=== PATIENT | male | born 1935 | race African-American/Black ===

== ENCOUNTER 2017-08-15 15:29 | Emergency (ER) | payer MEDICARE, MEDICAID, OTHER ==
[~2017-08-15] VITALS: Ht 167.6 cm; Wt 55.0 kg
[~2017-08-15 15:29] MED LIST: AMLO10TA80 PO; ASPI-1159 PO; CARV25TA47 PO; CINACALCET 30 MG PO; LOSA25TA12 PO; RENA-VITE PO; RENVELA PO; SIMVASTATIN 20MG PO
[2017-08-15 16:53] LABS: HEMATOCRIT. 35.1 % (42.0-52.0); HEMOGLOBIN. 11.4 g/dL (14.0-18.0); MEAN CORPUSCULAR HEMOGLOBIN 30.6 pg (28.0-32.0); MEAN PLATELET VOLUME 9.1 fl (7.4-10.4); PLATELET 210 x1000/uL (130-400); RED BLOOD CELL COUNT 3.74 mill/uL (4.7-6.1); RED CELL DISTRIBUTION WIDTH 15.7 % (11.6-14.6)
[2017-08-15 16:56] LABS: CHLORIDE 96 mEq/L (98-107); INR 1.2; PROTHROMBIN TIME 12.6 sec (9.4-11.6)
[2017-08-15 17:21] LABS: ATYPICAL LYMPHOCYTES 1; PLATELET ESTIMATE NORMAL
[2017-08-15 23:32] VITALS: BP 150/90
[2017-08-15 23:32] LABS: PHOSPHORUS 4.3 mg/dL (2.5-4.9)
== END 2017-08-16 00:53 | disposition home or self-care (01) ==
LOC: ER 16:05 → CANBEDREQ 08-16 01:28
DX: K40.90 Unilateral inguinal hernia, without obstruction or gangrene, not specified as recurrent (principal); I12.0 Hypertensive chronic kidney disease with stage 5 chronic kidney disease or end stage renal disease; N18.6 End stage renal disease; E87.8 Other disorders of electrolyte and fluid balance, not elsewhere classified; Z88.0 Allergy status to penicillin; Z99.2 Dependence on renal dialysis; Z79.82 Long term (current) use of aspirin
CPT/HCPCS: 36415; 71045; 74176; 80053; 83605; 83735; 84100; 84484; 85025; 85610; 85730; 87040; 93005; 99285

== ENCOUNTER 2017-08-21 09:44 | Inpatient (IN) | payer MEDICARE, OTHER ==
[~2017-08-21] VITALS: Ht 157.5 cm; Wt 56.0 kg
[2017-08-21] MEDS ORDERED: NITROGLYCERIN OINT 1GM/INCH UDPKT TD STA (10:03)
[2017-08-21 10:49] LABS: BASOPHILS % 0.9 % (0.0-2.0); EOSINOPHILS % 6.1 % (0.0-5.0); HEMATOCRIT. 34.2 % (42.0-52.0); HEMOGLOBIN. 11.4 g/dL (14.0-18.0); LYMPHOCYTES % 11.3 % (20.0-50.0); MEAN CORPUSCULAR HEMOGLOBIN 30.8 pg (28.0-32.0); MEAN CORPUSCULAR VOLUME 92.6 fL (80.0-94.0); MEAN PLATELET VOLUME 11.1 fl (7.4-10.4); MONOCYTES % 10.6 % (2.0-8.0); NEUTROPHILS % 71.1 % (40.0-76.0); PLATELET 252 x1000/uL (130-400); RED CELL DISTRIBUTION WIDTH 16.2 % (11.6-14.6)
[2017-08-21 10:58] LABS: CHLORIDE 92 mEq/L (98-107)
[2017-08-21 11:04] LABS: INR 1.3; PARTIAL THROMBOPLASTIN TIME 29.4 sec (23.4-31.0); PROTHROMBIN TIME 13.3 sec (9.4-11.6)
[2017-08-21 14:00] VITALS: BP 120/80
[2017-08-21] MEDS ORDERED: BISO5TAB13 MT (16:47)
[2017-08-21] MEDS ORDERED: AMBR5TAB3 MT (16:47)
[2017-08-21] MEDS: ENOXAPARIN 30MG/0.3ML SYR SUBCUT SCH (17:22)
[2017-08-21] MEDS: SEVELAMER CARBONATE 800 MG TABLET PO SCH (17:22)
[2017-08-21] MEDS: ASPIRIN 81MG EC TABLET PO SCH (17:22)
[2017-08-21 19:50] VITALS: BP 104/67
[2017-08-21] MEDS: CARVEDILOL 3.125 MG TABLET PO SCH (21:00)
[2017-08-21] MEDS: IPRATROPIUM/ALBUTEROL 0.5-3(2.5)MG/3ML NEB HHN SCH (22:07)
[2017-08-21] MEDS: BUDESONIDE 0.5MG/2ML NEB HHN SCH (22:08)
[2017-08-22] VITALS: BP 101/56
[2017-08-22] MEDS: IPRATROPIUM/ALBUTEROL 0.5-3(2.5)MG/3ML NEB HHN SCH ×4 (01:41→20:38)
[2017-08-22 04:00] VITALS: BP 105/61
[2017-08-22 06:53] LABS: HEMOGLOBIN. 11.1 g/dL (14.0-18.0); MEAN CORPUSCULAR HEMOGLOBIN 30.4 pg (28.0-32.0); MEAN CORPUSCULAR VOLUME 93.4 fL (80.0-94.0); PLATELET 199 x1000/uL (130-400); RED BLOOD CELL COUNT 3.64 mill/uL (4.7-6.1); RED CELL DISTRIBUTION WIDTH 16.3 % (11.6-14.6)
[2017-08-22] MEDS: SEVELAMER CARBONATE 800 MG TABLET PO SCH ×3 (07:50→17:26)
[2017-08-22 08:00] VITALS: BP 105/70
[2017-08-22] MEDS: BUDESONIDE 0.5MG/2ML NEB HHN SCH ×2 (08:30→20:38)
[2017-08-22] MEDS: LOSARTAN POTASSIUM 25 MG TABLET PO SCH (09:00)
[2017-08-22] MEDS: CARVEDILOL 3.125 MG TABLET PO SCH ×2 (09:00→21:40)
[2017-08-22] MEDS ORDERED: FLUTICASONE/VILANTEROL 200-25 BLST.W.DEV ORI SCH (09:00)
[2017-08-22] MEDS ORDERED: UMECLIDINIUM BROMIDE 1 INH BLST.W.DEV IH SCH (09:00)
[2017-08-22 09:24] LABS: CHLORIDE 96 mEq/L (98-107)
[2017-08-22 09:37] LABS: CREATINE KINASE 129 IU/L (39-308)
[2017-08-22 09:39] LABS: CREATINE KINASE MB FRACTION 1.1 ng/mL (0.5-3.6)
[2017-08-22] MEDS ORDERED: NON FORMULARY PATIENT HOME MED EA PO SCH (09:45)
[2017-08-22] MEDS: CINACALCET HCL 30MG TABLET PO SCH (09:59)
[2017-08-22] MEDS: FOLIC ACID/VITAMIN B COMP W-C TABLET PO SCH (10:01)
[2017-08-22] MEDS: ASPIRIN 81MG EC TABLET PO SCH (10:08)
[2017-08-22 12:00] VITALS: BP 96/54
[2017-08-22] MEDS: LETAIRIS 5 MG PO SCH (14:16)
[2017-08-22 14:22] LABS: PLATELET ESTIMATE NORMAL
[2017-08-22 16:00] VITALS: BP 107/65
[2017-08-22] MEDS ORDERED: SODIUM POLYSTYRENE SULFONATE 15 G/60 ML BOT PO NR (16:00)
[2017-08-22] MEDS: ENOXAPARIN 30MG/0.3ML SYR SUBCUT SCH (17:26)
[2017-08-22 20:45] VITALS: BP 117/65
[2017-08-23 00:27] VITALS: BP 146/62
[2017-08-23] MEDS: IPRATROPIUM/ALBUTEROL 0.5-3(2.5)MG/3ML NEB HHN SCH ×5 (01:17→21:14)
[2017-08-23 04:00] VITALS: BP 140/60
[2017-08-23 06:13] LABS: BASOPHILS % 0.9 % (0.0-2.0); EOSINOPHILS % 9.1 % (0.0-5.0); HEMATOCRIT. 33.8 % (42.0-52.0); HEMOGLOBIN. 11.3 g/dL (14.0-18.0); MEAN CORPUSCULAR HEMOGLOBIN 31.1 pg (28.0-32.0); MEAN CORPUSCULAR VOLUME 93.1 fL (80.0-94.0); MEAN PLATELET VOLUME 9.7 fl (7.4-10.4); MONOCYTES % 14.2 % (2.0-8.0); NEUTROPHILS % 63.8 % (40.0-76.0); PLATELET 203 x1000/uL (130-400); RED BLOOD CELL COUNT 3.64 mill/uL (4.7-6.1)
[2017-08-23 06:30] LABS: CHLORIDE 91 mEq/L (98-107)
[2017-08-23 06:49] LABS: PHOSPHORUS 4.2 mg/dL (2.5-4.9)
[2017-08-23 08:00] VITALS: BP 137/77
[2017-08-23] MEDS: BUDESONIDE 0.5MG/2ML NEB HHN SCH ×2 (08:01→21:14)
[2017-08-23] MEDS: CARVEDILOL 3.125 MG TABLET PO SCH ×2 (09:00→21:03)
[2017-08-23] MEDS: LOSARTAN POTASSIUM 25 MG TABLET PO SCH (09:05)
[2017-08-23] MEDS: SEVELAMER CARBONATE 800 MG TABLET PO SCH ×3 (09:12→17:09)
[2017-08-23] MEDS: LETAIRIS 5 MG PO SCH (09:13)
[2017-08-23 12:00] VITALS: BP 100/54
[2017-08-23 15:30] VITALS: BP 125/73
[2017-08-23] MEDS: ASPIRIN 81MG EC TABLET PO SCH (17:08)
[2017-08-23] MEDS: FOLIC ACID/VITAMIN B COMP W-C TABLET PO SCH (17:08)
[2017-08-23] MEDS: CINACALCET HCL 30MG TABLET PO SCH (17:09)
[2017-08-23] MEDS: ENOXAPARIN 30MG/0.3ML SYR SUBCUT SCH (17:09)
[2017-08-23 20:49] VITALS: BP 120/56
[2017-08-23] MEDS: ACETAMINOPHEN 325MG TABLET PO PRN (21:03)
[2017-08-24] VITALS: BP 122/58
[2017-08-24] MEDS: IPRATROPIUM/ALBUTEROL 0.5-3(2.5)MG/3ML NEB HHN SCH ×2 (01:11→09:00)
[2017-08-24 04:00] VITALS: BP 124/58
[2017-08-24 07:59] VITALS: BP 136/78
[2017-08-24] MEDS: LOSARTAN POTASSIUM 25 MG TABLET PO SCH (08:13)
[2017-08-24] MEDS: CINACALCET HCL 30MG TABLET PO SCH (08:13)
[2017-08-24] MEDS: CARVEDILOL 3.125 MG TABLET PO SCH ×2 (08:13→21:38)
[2017-08-24] MEDS: FOLIC ACID/VITAMIN B COMP W-C TABLET PO SCH (08:13)
[2017-08-24] MEDS: ASPIRIN 81MG EC TABLET PO SCH (08:13)
[2017-08-24] MEDS: SEVELAMER CARBONATE 800 MG TABLET PO SCH (08:13)
[2017-08-24] MEDS: ACETAMINOPHEN 325MG TABLET PO PRN (08:21)
[2017-08-24] MEDS: BUDESONIDE 0.5MG/2ML NEB HHN SCH (09:20)
[2017-08-24] MEDS: LETAIRIS 5 MG PO SCH (09:52)
[2017-08-24] MEDS ORDERED: CINACALCET HCL 30MG TABLET PO SCH (10:00)
[2017-08-24] MEDS ORDERED: UMECLIDINIUM BROMIDE 1 INH BLST.W.DEV IH SCH (10:15)
[2017-08-24] MEDS ORDERED: FLUTICASONE/VILANTEROL 200-25 BLST.W.DEV ORI SCH (10:15)
[2017-08-24] MEDS: UMECLIDINIUM BROMIDE 1 INH BLST.W.DEV IH SCH (11:03)
[2017-08-24] MEDS: FLUTICASONE/VILANTEROL 200-25 BLST.W.DEV ORI SCH (11:04)
[2017-08-24 12:13] VITALS: BP 90/52
[2017-08-24 13:18] LABS: HEMOGLOBIN. 10.5 g/dL (14.0-18.0); MEAN CORPUSCULAR HEMOGLOBIN 30.6 pg (28.0-32.0); MEAN CORPUSCULAR VOLUME 93.6 fL (80.0-94.0); MEAN PLATELET VOLUME 9.9 fl (7.4-10.4); PLATELET 207 x1000/uL (130-400); RED BLOOD CELL COUNT 3.42 mill/uL (4.7-6.1); RED CELL DISTRIBUTION WIDTH 16.7 % (11.6-14.6)
[2017-08-24 13:53] LABS: PHOSPHORUS 3.9 mg/dL (2.5-4.9)
[2017-08-24] MEDS: CALCIUM ACETATE 667MG CAPSULE PO SCH ×2 (14:15→17:14)
[2017-08-24 15:33] VITALS: BP 100/59
[2017-08-24] MEDS: ENOXAPARIN 30MG/0.3ML SYR SUBCUT SCH (17:00)
[2017-08-24 17:48] LABS: AMMONIA 12 uMol/L (<32)
[2017-08-24 20:00] VITALS: BP 126/68
[2017-08-25] VITALS: BP 130/60
[2017-08-25 04:00] VITALS: BP 117/76
[2017-08-25 06:34] LABS: HEMATOCRIT. 31.3 % (42.0-52.0); HEMOGLOBIN. 10.3 g/dL (14.0-18.0); MEAN CORPUSCULAR HEMOGLOBIN 30.6 pg (28.0-32.0); MEAN CORPUSCULAR VOLUME 92.9 fL (80.0-94.0); MEAN PLATELET VOLUME 9.4 fl (7.4-10.4); PLATELET 200 x1000/uL (130-400); RED BLOOD CELL COUNT 3.37 mill/uL (4.7-6.1); RED CELL DISTRIBUTION WIDTH 16.7 % (11.6-14.6)
[2017-08-25 08:00] VITALS: BP 129/72
[2017-08-25] MEDS: CINACALCET HCL 60MG TABLET PO SCH (09:00)
[2017-08-25] MEDS: CALCIUM ACETATE 667MG CAPSULE PO SCH ×3 (09:05→17:20)
[2017-08-25] MEDS: CARVEDILOL 3.125 MG TABLET PO SCH ×2 (09:05→21:09)
[2017-08-25] MEDS: FOLIC ACID/VITAMIN B COMP W-C TABLET PO SCH (09:05)
[2017-08-25] MEDS: FLUTICASONE/VILANTEROL 200-25 BLST.W.DEV ORI SCH (09:06)
[2017-08-25] MEDS: LETAIRIS 5 MG PO SCH (09:07)
[2017-08-25] MEDS: UMECLIDINIUM BROMIDE 1 INH BLST.W.DEV IH SCH (09:27)
[2017-08-25 10:50] LABS: PLATELET ESTIMATE NORMAL
[2017-08-25 12:00] VITALS: BP 103/60
[2017-08-25 13:43] LABS: PLATELET ESTIMATE NORMAL
[2017-08-25 16:00] VITALS: BP 127/76
[2017-08-25] MEDS: LOSARTAN POTASSIUM 25 MG TABLET PO SCH (17:19)
[2017-08-25] MEDS: ASPIRIN 81MG EC TABLET PO SCH (17:19)
[2017-08-25] MEDS: ENOXAPARIN 30MG/0.3ML SYR SUBCUT SCH (17:20)
[2017-08-25 20:00] VITALS: BP 137/82
[2017-08-26] VITALS: BP 120/72
[2017-08-26 04:00] VITALS: BP 125/80
[2017-08-26 08:00] VITALS: BP 132/71
[2017-08-26] MEDS: CINACALCET HCL 60MG TABLET PO SCH (09:28)
[2017-08-26] MEDS: FOLIC ACID/VITAMIN B COMP W-C TABLET PO SCH (09:29)
[2017-08-26] MEDS: CALCIUM ACETATE 667MG CAPSULE PO SCH ×3 (09:29→17:16)
[2017-08-26] MEDS: ASPIRIN 81MG EC TABLET PO SCH (09:30)
[2017-08-26] MEDS: LOSARTAN POTASSIUM 25 MG TABLET PO SCH (09:30)
[2017-08-26] MEDS: LETAIRIS 5 MG PO SCH (09:31)
[2017-08-26] MEDS: CARVEDILOL 3.125 MG TABLET PO SCH ×2 (09:33→21:22)
[2017-08-26] MEDS: FLUTICASONE/VILANTEROL 200-25 BLST.W.DEV ORI SCH (09:40)
[2017-08-26] MEDS: UMECLIDINIUM BROMIDE 1 INH BLST.W.DEV IH SCH (09:41)
[2017-08-26 12:10] VITALS: BP 125/74
[2017-08-26] MEDS: ALBUTEROL (0.083%) 2.5MG/3ML NEB HHN PRN ×2 (12:21→16:02)
[2017-08-26] MEDS: ENOXAPARIN 30MG/0.3ML SYR SUBCUT SCH (17:18)
[2017-08-26 18:00] VITALS: BP 120/76
[2017-08-26 20:17] VITALS: BP 112/65
[2017-08-27] VITALS: BP 110/60
[2017-08-27 04:11] VITALS: BP 135/66
[2017-08-27 06:52] LABS: HEMATOCRIT. 29.7 % (42.0-52.0); HEMOGLOBIN. 9.9 g/dL (14.0-18.0); MEAN CORPUSCULAR HEMOGLOBIN 30.6 pg (28.0-32.0); MEAN CORPUSCULAR VOLUME 92.1 fL (80.0-94.0); MEAN PLATELET VOLUME 9.6 fl (7.4-10.4); PLATELET 203 x1000/uL (130-400); RED BLOOD CELL COUNT 3.22 mill/uL (4.7-6.1); RED CELL DISTRIBUTION WIDTH 16.3 % (11.6-14.6)
[2017-08-27 07:12] LABS: PHOSPHORUS 3.4 mg/dL (2.5-4.9)
[2017-08-27 08:06] VITALS: BP 122/75
[2017-08-27] MEDS: FOLIC ACID/VITAMIN B COMP W-C TABLET PO SCH (09:40)
[2017-08-27] MEDS: CINACALCET HCL 60MG TABLET PO SCH (09:41)
[2017-08-27] MEDS: ASPIRIN 81MG EC TABLET PO SCH (09:41)
[2017-08-27] MEDS: CARVEDILOL 3.125 MG TABLET PO SCH (09:42)
[2017-08-27] MEDS: CALCIUM ACETATE 667MG CAPSULE PO SCH (09:43)
[2017-08-27] MEDS: LOSARTAN POTASSIUM 25 MG TABLET PO SCH (09:43)
[2017-08-27] MEDS: LETAIRIS 5 MG PO SCH (09:44)
[2017-08-27] MEDS: FLUTICASONE/VILANTEROL 200-25 BLST.W.DEV ORI SCH (09:45)
[2017-08-27] MEDS: UMECLIDINIUM BROMIDE 1 INH BLST.W.DEV IH SCH (09:45)
[2017-08-27] MEDS ORDERED: SODIUM POLYSTYRENE SULFONATE 15 G/60 ML BOT PO SCH (10:45)
[2017-08-27 11:23] LABS: PLATELET ESTIMATE NORMAL
[2017-08-27 11:42] VITALS: BP 151/91
[2017-08-27 11:45] LABS: BG BASE EXCESS -0.2 mmol/L (-2.0-2.0); BG CARBOXYHEMOGLOBIN 0.9 % (0.5-1.5); BG FRACTION INSPIRED OXYGEN 21; BG HCO3 ACT 21.8 mmol/L (22.0-26.0); BG METHEMOGLOBIN 0.3 % (0.0-1.5); BG OXYGEN SATURATION 92.9 % (92.0-98.5); BG OXYHEMOGLOBIN 91.8 % (94.0-97.0); BG PCO2 27.9 mmHg (35.0-45.0); BG PH 7.511 (7.350-7.450); BG PO2 65.7 mmHg (75.0-100.0); BG SAMPLE SITE RIGHT RADIAL; BG TOTAL HEMOGLOBIN 11.6 g/dL (12.0-18.0); BG VENT MODE ROOM AIR
[2017-08-27 13:00] VITALS: BP 134/75
== END 2017-08-27 15:11 | disposition home or self-care (01) | DRG 291 ==
LOC: ER 10:47 → 6WST 11:15 → EDBEDREQTM 11:16 → EDBEDREQ 11:16 → ENRESERV 13:19 → SUPCPDRO 14:39
PROVIDERS: ADMIT Internal Medicine Critical Care Medicine; ATTEND Internal Medicine Critical Care Medicine
PROC: 5A1D70Z Performance of Urinary Filtration, Intermittent, Less than 6 Hours Per Day (ICD-10-PCS; principal; 2017-08-21)
PROC: 5A1D70Z Performance of Urinary Filtration, Intermittent, Less than 6 Hours Per Day (ICD-10-PCS; 2017-08-23)
PROC: 5A1D70Z Performance of Urinary Filtration, Intermittent, Less than 6 Hours Per Day (ICD-10-PCS; 2017-08-25)
DX: I13.2 Hypertensive heart and chronic kidney disease with heart failure and with stage 5 chronic kidney disease, or end stage renal disease (principal); N18.6 End stage renal disease; J96.91 Respiratory failure, unspecified with hypoxia; I50.33 Acute on chronic diastolic (congestive) heart failure; N25.81 Secondary hyperparathyroidism of renal origin; N17.9 Acute kidney failure, unspecified; Z99.2 Dependence on renal dialysis; I27.21 Secondary pulmonary arterial hypertension; J44.9 Chronic obstructive pulmonary disease, unspecified; I34.0 Nonrheumatic mitral (valve) insufficiency; D64.9 Anemia, unspecified; E11.22 Type 2 diabetes mellitus with diabetic chronic kidney disease; E78.00 Pure hypercholesterolemia, unspecified; E78.5 Hyperlipidemia, unspecified; E87.5 Hyperkalemia; F41.9 Anxiety disorder, unspecified; Z96.1 Presence of intraocular lens; I42.9 Cardiomyopathy, unspecified; I27.20 Pulmonary hypertension, unspecified; I25.10 Atherosclerotic heart disease of native coronary artery without angina pectoris; Z82.5 Family history of asthma and other chronic lower respiratory diseases; Z87.891 Personal history of nicotine dependence; Z88.0 Allergy status to penicillin; Z98.41 Cataract extraction status, right eye; Z98.42 Cataract extraction status, left eye; Z99.81 Dependence on supplemental oxygen; Z79.4 Long term (current) use of insulin
CPT/HCPCS: 36415; 36600; 70450; 71045; 80048; 80053; 82140; 82375; 82550; 82553; 82805; 82962; 83605; 83735; 83880; 84100; 84443; 84484; 85025; 85379; 85610; 85730; 87040; 93005; 99291; J1650; J7030; J7611; J7620; J7626

== ENCOUNTER 2018-01-03 07:09 | Inpatient (IN) | payer MEDICARE, OTHER ==
[~2018-01-03] VITALS: Ht 167.6 cm; Wt 57.6 kg
[~2018-01-03 07:09] MED LIST changes: +AMBR5TAB3 MT; -AMLO10TA80 PO; -RENVELA PO
[2018-01-03 08:33] LABS: HEMATOCRIT. 39.1 % (42.0-52.0); MEAN CORPUSCULAR HEMOGLOBIN 32.1 pg (28.0-32.0); MEAN CORPUSCULAR VOLUME 96.3 fL (80.0-94.0); MEAN PLATELET VOLUME 10.1 fl (7.4-10.4); PLATELET 120 x1000/uL (130-400); RED BLOOD CELL COUNT 4.06 mill/uL (4.7-6.1); RED CELL DISTRIBUTION WIDTH 16.7 % (11.6-14.6)
[2018-01-03 08:37] LABS: CHLORIDE 94 mEq/L (98-107)
[2018-01-03 08:56] LABS: PLATELET ESTIMATE SLIGHTLY DECREASED
[2018-01-03 09:51] LABS: INR 1.1
[2018-01-03] MEDS ORDERED: CLONIDINE 0.1MG TABLET PO PRN (10:00)
[2018-01-03 10:26] LABS: TOTAL IRON BINDING CAPACITY 217 ug/dL (250-450)
[2018-01-03 10:52] LABS: VITAMIN B12 SERUM 852 pg/mL (211-911)
[2018-01-03 15:48] VITALS: BP 145/85
[2018-01-03 16:00] VITALS: BP 145/85
[2018-01-03] MEDS: CINACALCET HCL 60MG TABLET PO SCH (16:00)
[2018-01-03] MEDS ORDERED: SORBITOL 70% SOLN 30ML PO NR ×2 (16:00→20:00)
[2018-01-03] MEDS ORDERED: ALBUTEROL (0.083%) 2.5MG/3ML NEB HHN PRN (17:30)
[2018-01-03 17:47] LABS: BG BASE EXCESS 2.6 mmol/L (-2.0-2.0); BG CARBOXYHEMOGLOBIN 0.9 % (0.5-1.5); BG DEOXYHEMOGLOBIN 7.7 % (0.0-5.0); BG HCO3 ACT 25.3 mmol/L (22.0-26.0); BG METHEMOGLOBIN 0.3 % (0.0-1.5); BG OXYGEN SATURATION 92.2 % (92.0-98.5); BG OXYHEMOGLOBIN 91.1 % (94.0-97.0); BG PCO2 33.1 mmHg (35.0-45.0); BG PH 7.502 (7.350-7.450); BG PO2 64.7 mmHg (75.0-100.0); BG SAMPLE SITE RIGHT RADIAL; BG TOTAL HEMOGLOBIN 12.7 g/dL (12.0-18.0); BG VENT MODE ROOM AIR
[2018-01-03 20:00] VITALS: BP 106/83
[2018-01-03] MEDS: UMECLIDINIUM BROMIDE 1 INH BLST.W.DEV IH SCH (20:00)
[2018-01-03] MEDS: FLUTICASONE/VILANTEROL 200-25 BLST.W.DEV ORI SCH (20:00)
[2018-01-03] MEDS ORDERED: DEXT 5%/0.45% NACL 1000ML 1,000 ML IV SCH (23:30)
[2018-01-04] VITALS: BP 146/64
[2018-01-04] MEDS ORDERED: ONDANSETRON HCL 4MG/2ML INJ IV PRN (01:30)
[2018-01-04] MEDS ORDERED: DEXT 5%/0.45% NACL 1000ML 1,000 ML IV SCH (02:00)
[2018-01-04 04:00] VITALS: BP 130/83
[2018-01-04 07:40] LABS: D-DIMER 16.46 mg/L FEU (<0.50); INR 1.1; PARTIAL THROMBOPLASTIN TIME 24.6 sec (23.4-31.0); PROTHROMBIN TIME 11.4 sec (9.1-11.1)
[2018-01-04 07:55] LABS: BASOPHILS % 0.9 % (0.0-2.0); HEMATOCRIT. 45.9 % (42.0-52.0); HEMOGLOBIN. 14.7 g/dL (14.0-18.0); LYMPHOCYTES % 12.5 % (20.0-50.0); MEAN CORPUSCULAR HEMOGLOBIN 31.6 pg (28.0-32.0); MEAN CORPUSCULAR VOLUME 98.6 fL (80.0-94.0); MEAN PLATELET VOLUME 10.7 fl (7.4-10.4); MONOCYTES % 13.3 % (2.0-8.0); NEUTROPHILS % 72.3 % (40.0-76.0); PLATELET 126 x1000/uL (130-400); RED BLOOD CELL COUNT 4.65 mill/uL (4.7-6.1); RED CELL DISTRIBUTION WIDTH 17.7 % (11.6-14.6)
[2018-01-04] MEDS: CINACALCET HCL 60MG TABLET PO SCH (08:25)
[2018-01-04 08:30] VITALS: BP 117/72
[2018-01-04 12:00] VITALS: BP 142/83
[2018-01-04 12:27] LABS: T4 FREE 1.26 ng/dL (0.76-1.46)
[2018-01-04] MEDS ORDERED: SIMETHICONE 40 MG/0.6 ML 30ML ONE (16:16)
[2018-01-04] MEDS ORDERED: FENTANYL CITRATE/PF 50MCG/ML 2ML VIAL IV ONE (16:20)
[2018-01-04] MEDS ORDERED: MIDAZOLAM HCL 5 MG/5 ML VIAL IV ONE (16:20)
[2018-01-04] MEDS ORDERED: MIDAZOLAM HCL 5 MG/5 ML VIAL ONE (16:25)
[2018-01-04] MEDS ORDERED: FENTANYL CITRATE/PF 50MCG/ML 2ML VIAL ONE (16:29)
[2018-01-04 18:00] VITALS: BP 147/77
[2018-01-04 20:00] VITALS: BP 134/75
[2018-01-05] VITALS: BP 112/60
[2018-01-05 04:00] VITALS: BP 118/77
[2018-01-05 06:38] LABS: HEMATOCRIT. 37.6 % (42.0-52.0); HEMOGLOBIN. 12.6 g/dL (14.0-18.0); MEAN CORPUSCULAR HEMOGLOBIN 32.4 pg (28.0-32.0); MEAN CORPUSCULAR VOLUME 96.6 fL (80.0-94.0); MEAN PLATELET VOLUME 9.8 fl (7.4-10.4); PLATELET 101 x1000/uL (130-400); RED BLOOD CELL COUNT 3.89 mill/uL (4.7-6.1); RED CELL DISTRIBUTION WIDTH 17.2 % (11.6-14.6)
[2018-01-05 07:12] LABS: PHOSPHORUS 5.4 mg/dL (2.5-4.9)
[2018-01-05 07:16] LABS: T4 FREE 1.2 ng/dL (0.76-1.46)
[2018-01-05 08:23] VITALS: BP 139/82
[2018-01-05] MEDS: FLUTICASONE/VILANTEROL 200-25 BLST.W.DEV ORI SCH ×2 (08:49→08:56)
[2018-01-05] MEDS: CINACALCET HCL 60MG TABLET PO SCH (08:49)
[2018-01-05] MEDS: UMECLIDINIUM BROMIDE 1 INH BLST.W.DEV IH SCH ×2 (08:51→08:55)
[2018-01-05] MEDS ORDERED: LEVOTHYROXINE SODIUM 25MCG TABLET PO SCH (11:45)
[2018-01-05 11:52] LABS: PLATELET ESTIMATE DECREASED
[2018-01-05 12:00] VITALS: BP 107/64
[2018-01-05 16:16] VITALS: BP 107/64
== END 2018-01-05 18:00 | disposition home or self-care (01) | DRG 377 ==
LOC: ER 07:09 → 8WST 09:31 → EDBEDREQTM 09:34 → EDBEDREQ 09:34 → ENRESERV 14:24
PROVIDERS: ADMIT Internal Medicine; ATTEND Internal Medicine
PROC: 5A1D70Z Performance of Urinary Filtration, Intermittent, Less than 6 Hours Per Day (ICD-10-PCS; 2018-01-03)
PROC: 5A1D70Z Performance of Urinary Filtration, Intermittent, Less than 6 Hours Per Day (ICD-10-PCS; 2018-01-04)
PROC: 0DJD8ZZ Inspection of Lower Intestinal Tract, Via Natural or Artificial Opening Endoscopic (ICD-10-PCS; principal; 2018-01-04 14:00)
DX: K57.31 Diverticulosis of large intestine without perforation or abscess with bleeding (principal); N18.6 End stage renal disease; K85.90 Acute pancreatitis without necrosis or infection, unspecified; N25.81 Secondary hyperparathyroidism of renal origin; J96.11 Chronic respiratory failure with hypoxia; I31.3 Pericardial effusion (noninflammatory); I13.2 Hypertensive heart and chronic kidney disease with heart failure and with stage 5 chronic kidney disease, or end stage renal disease; I42.0 Dilated cardiomyopathy; E78.00 Pure hypercholesterolemia, unspecified; Z96.1 Presence of intraocular lens; D50.9 Iron deficiency anemia, unspecified; F17.210 Nicotine dependence, cigarettes, uncomplicated; K64.8 Other hemorrhoids; I50.9 Heart failure, unspecified; E78.5 Hyperlipidemia, unspecified; I25.10 Atherosclerotic heart disease of native coronary artery without angina pectoris; J44.9 Chronic obstructive pulmonary disease, unspecified; I27.20 Pulmonary hypertension, unspecified; Z88.0 Allergy status to penicillin; Z79.82 Long term (current) use of aspirin; Z79.899 Other long term (current) drug therapy; Z99.81 Dependence on supplemental oxygen; Z95.5 Presence of coronary angioplasty implant and graft; Z82.5 Family history of asthma and other chronic lower respiratory diseases; Z79.890 Hormone replacement therapy; Z98.41 Cataract extraction status, right eye; Z98.42 Cataract extraction status, left eye; Z99.2 Dependence on renal dialysis; I34.0 Nonrheumatic mitral (valve) insufficiency
CPT/HCPCS: 36415; 36600; 71045; 74176; 80048; 82150; 82270; 82375; 82607; 82805; 83540; 83550; 83735; 84100; 84439; 84443; 84481; 84484; 85044; 85379; 86850; 86900; 93005; 99285; J2250; J2405; J3010

== ENCOUNTER 2018-01-23 09:28 | Inpatient (IN) | payer MEDICARE, OTHER ==
[~2018-01-23] VITALS: Ht 167.6 cm; Wt 58.1 kg
[2018-01-23 10:08] LABS: HEMATOCRIT. 21.9 % (42.0-52.0); HEMOGLOBIN. 7.4 g/dL (14.0-18.0); MEAN CORPUSCULAR HEMOGLOBIN 33.6 pg (28.0-32.0); MEAN CORPUSCULAR VOLUME 99.9 fL (80.0-94.0); PLATELET 151 x1000/uL (130-400); RED BLOOD CELL COUNT 2.19 mill/uL (4.7-6.1); RED CELL DISTRIBUTION WIDTH 17.3 % (11.6-14.6)
[2018-01-23 10:16] LABS: CHLORIDE 95 mEq/L (98-107)
[2018-01-23 10:29] LABS: PLATELET ESTIMATE NORMAL
[2018-01-23] MEDS ORDERED: ONDANSETRON HCL 4MG/2ML INJ IV PRN (11:45)
[2018-01-23] MEDS ORDERED: ACETAMINOPHEN 325MG TABLET PO PRN (11:45)
[2018-01-23 11:59] LABS: INR 1.1; PROTHROMBIN TIME 10.9 sec (9.1-11.1)
[2018-01-23 14:44] LABS: MEAN CORPUSCULAR HEMOGLOBIN 33.4 pg (28.0-32.0); MEAN CORPUSCULAR VOLUME 100.4 fL (80.0-94.0); MEAN PLATELET VOLUME 8.7 fl (7.4-10.4); PLATELET 151 x1000/uL (130-400)
[2018-01-23 14:47] LABS: HEMATOCRIT. 20.1 % (42.0-52.0); HEMOGLOBIN. 6.7 g/dL (14.0-18.0)
[2018-01-23 14:55] VITALS: BP 98/59
[2018-01-23 15:02] LABS: PLATELET ESTIMATE NORMAL
[2018-01-23] MEDS: PANTOPRAZOLE SODIUM 40 MG/VIAL IV SCH ×2 (15:22→23:01)
[2018-01-23 16:25] VITALS: BP 110/56
[2018-01-23 16:35] VITALS: BP 114/48
[2018-01-23 16:50] VITALS: BP 101/54
[2018-01-23 17:19] LABS: TOTAL IRON BINDING CAPACITY 292 ug/dL (250-450)
[2018-01-23 17:20] VITALS: BP 96/49
[2018-01-23] MEDS: PHENYLEPHRINE/SHK LV/MO/PET,WH RECTAL OINT 28GM PR SCH (18:00)
[2018-01-23 20:00] VITALS: BP 88/46
[2018-01-23] MEDS: HEMORRHOIDAL SUPP PR SCH (21:00)
[2018-01-24] VITALS: BP 107/61
[2018-01-24] MEDS: PHENYLEPHRINE/SHK LV/MO/PET,WH RECTAL OINT 28GM PR SCH ×4 (00:33→17:16)
[2018-01-24 00:39] LABS: HEMATOCRIT 22.7 % (42.0-52.0); HEMOGLOBIN 7.7 g/dL (14.0-18.0)
[2018-01-24 04:00] VITALS: BP 90/59
[2018-01-24 07:09] LABS: HEMATOCRIT. 22.7 % (42.0-52.0); HEMOGLOBIN. 7.8 g/dL (14.0-18.0); MEAN CORPUSCULAR HEMOGLOBIN 33.3 pg (28.0-32.0); MEAN CORPUSCULAR VOLUME 96.4 fL (80.0-94.0); MEAN PLATELET VOLUME 9.1 fl (7.4-10.4); PLATELET 144 x1000/uL (130-400); RED BLOOD CELL COUNT 2.35 mill/uL (4.7-6.1); RED CELL DISTRIBUTION WIDTH 16.8 % (11.6-14.6)
[2018-01-24 07:25] LABS: CHLORIDE 95 mEq/L (98-107)
[2018-01-24 07:40] LABS: PHOSPHORUS 3.3 mg/dL (2.5-4.9)
[2018-01-24 08:00] VITALS: BP 103/55
[2018-01-24] MEDS: CINACALCET HCL 60MG TABLET PO SCH (09:29)
[2018-01-24] MEDS: PANTOPRAZOLE SODIUM 40 MG/VIAL IV SCH ×2 (09:29→20:48)
[2018-01-24 10:16] LABS: PLATELET ESTIMATE NORMAL
[2018-01-24] MEDS: HEMORRHOIDAL SUPP PR SCH ×2 (10:56→20:48)
[2018-01-24] MEDS: UMECLIDINIUM BROMIDE 1 INH BLST.W.DEV IH SCH (10:56)
[2018-01-24] MEDS: FLUTICASONE/VILANTEROL 200-25 BLST.W.DEV ORI SCH ×2 (10:56→20:44)
[2018-01-24 12:00] VITALS: BP 104/57
[2018-01-24] MEDS: NEBIVOLOL HCL 5 MG TABLET PO SCH (12:15)
[2018-01-24] MEDS ORDERED: CARVEDILOL 3.125 MG TABLET PO SCH (14:00)
[2018-01-24 16:00] VITALS: BP 100/54
[2018-01-24 17:06] LABS: HEMOGLOBIN 8.1 g/dL (14.0-18.0)
[2018-01-24 20:00] VITALS: BP 108/52
[2018-01-25] VITALS: BP 105/63
[2018-01-25 04:00] VITALS: BP 141/65
[2018-01-25] MEDS: PHENYLEPHRINE/SHK LV/MO/PET,WH RECTAL OINT 28GM PR SCH ×4 (06:47→17:51)
[2018-01-25 06:48] LABS: HEMATOCRIT. 23.5 % (42.0-52.0); HEMOGLOBIN. 8.1 g/dL (14.0-18.0); MEAN CORPUSCULAR HEMOGLOBIN 33.4 pg (28.0-32.0); MEAN CORPUSCULAR VOLUME 96.3 fL (80.0-94.0); MEAN PLATELET VOLUME 9.5 fl (7.4-10.4); PLATELET 147 x1000/uL (130-400); RED BLOOD CELL COUNT 2.44 mill/uL (4.7-6.1)
[2018-01-25 07:59] LABS: PHOSPHORUS 3.8 mg/dL (2.5-4.9)
[2018-01-25 08:30] VITALS: BP 100/58
[2018-01-25] MEDS: FLUTICASONE/VILANTEROL 200-25 BLST.W.DEV ORI SCH (08:50)
[2018-01-25] MEDS: UMECLIDINIUM BROMIDE 1 INH BLST.W.DEV IH SCH (08:50)
[2018-01-25] MEDS: PANTOPRAZOLE SODIUM 40 MG/VIAL IV SCH (08:50)
[2018-01-25] MEDS: HEMORRHOIDAL SUPP PR SCH (08:50)
[2018-01-25] MEDS: NEBIVOLOL HCL 5 MG TABLET PO SCH (09:00)
[2018-01-25] MEDS: CINACALCET HCL 60MG TABLET PO SCH (09:00)
[2018-01-25] MEDS ORDERED: MECLIZINE 12.5MG TABLET PO PRN (09:45)
[2018-01-25 10:55] LABS: PLATELET ESTIMATE NORMAL
[2018-01-25] MEDS ORDERED: MIDAZOLAM HCL 5 MG/5 ML VIAL IV PRN (11:48)
[2018-01-25] MEDS ORDERED: MIDAZOLAM HCL 5 MG/5 ML VIAL ONE (11:52)
[2018-01-25] MEDS ORDERED: FENTANYL CITRATE/PF 50MCG/ML 2ML VIAL ONE (11:52)
[2018-01-25 12:00] VITALS: BP 115/59
[2018-01-25] MEDS ORDERED: SODIUM CHLORIDE 0.9% 10ML VIAL ONE (14:40)
[2018-01-25 17:39] VITALS: BP 115/59
== END 2018-01-25 19:05 | disposition home or self-care (01) | DRG 377 ==
LOC: ER 09:28 → 8WST 10:23 → EDBEDREQ 10:25 → EDBEDREQTM 10:25 → ENRESERV 13:48
PROVIDERS: ADMIT Internal Medicine; ATTEND Internal Medicine
PROC: 30233N1 Transfusion of Nonautologous Red Blood Cells into Peripheral Vein, Percutaneous Approach (ICD-10-PCS; principal; 2018-01-23)
PROC: 5A1D70Z Performance of Urinary Filtration, Intermittent, Less than 6 Hours Per Day (ICD-10-PCS; 2018-01-23)
PROC: 5A1D70Z Performance of Urinary Filtration, Intermittent, Less than 6 Hours Per Day (ICD-10-PCS; 2018-01-25)
PROC: 0DB78ZX Excision of Stomach, Pylorus, Via Natural or Artificial Opening Endoscopic, Diagnostic (ICD-10-PCS; 2018-01-25)
DX: K29.71 Gastritis, unspecified, with bleeding (principal); I50.23 Acute on chronic systolic (congestive) heart failure; N18.6 End stage renal disease; I13.2 Hypertensive heart and chronic kidney disease with heart failure and with stage 5 chronic kidney disease, or end stage renal disease; I31.3 Pericardial effusion (noninflammatory); I42.0 Dilated cardiomyopathy; N25.81 Secondary hyperparathyroidism of renal origin; K57.31 Diverticulosis of large intestine without perforation or abscess with bleeding; K64.8 Other hemorrhoids; D53.9 Nutritional anemia, unspecified; Z99.2 Dependence on renal dialysis; E03.9 Hypothyroidism, unspecified; E78.00 Pure hypercholesterolemia, unspecified; E78.5 Hyperlipidemia, unspecified; E87.8 Other disorders of electrolyte and fluid balance, not elsewhere classified; I25.10 Atherosclerotic heart disease of native coronary artery without angina pectoris; I25.5 Ischemic cardiomyopathy; I27.20 Pulmonary hypertension, unspecified; I49.3 Ventricular premature depolarization; I95.3 Hypotension of hemodialysis; J44.9 Chronic obstructive pulmonary disease, unspecified; K44.9 Diaphragmatic hernia without obstruction or gangrene; Z82.5 Family history of asthma and other chronic lower respiratory diseases; Z88.0 Allergy status to penicillin; Z95.5 Presence of coronary angioplasty implant and graft; Z99.81 Dependence on supplemental oxygen; Z79.82 Long term (current) use of aspirin; Z79.899 Other long term (current) drug therapy
CPT/HCPCS: 36415; 71045; 80048; 83540; 83550; 83605; 83735; 84100; 84484; 85014; 85018; 85044; 85379; 86850; 86900; 86920; 88305; 88312; 88313; 93005; 93970; 97162; 99291; A4216; C9113; J2250; J3010; J7040; P9016

== ENCOUNTER 2018-03-29 01:10 | Inpatient (IN) | payer MEDICARE, MEDICAID, OTHER ==
[~2018-03-29] VITALS: Ht 167.6 cm; Wt 59.1 kg
[~2018-03-29 01:10] MED LIST changes: -ASPI-1159 PO
[2018-03-29] MEDS ORDERED: PANTOPRAZOLE SODIUM 40 MG/VIAL IV STA (02:16)
[2018-03-29 02:37] LABS: HEMOGLOBIN. 9.8 g/dL (14.0-18.0); MEAN CORPUSCULAR HEMOGLOBIN 30.9 pg (28.0-32.0); MEAN CORPUSCULAR VOLUME 97.5 fL (80.0-94.0); MEAN PLATELET VOLUME 10.4 fl (7.4-10.4); PLATELET 143 x1000/uL (130-400); RED BLOOD CELL COUNT 3.18 mill/uL (4.7-6.1); RED CELL DISTRIBUTION WIDTH 16.9 % (11.6-14.6)
[2018-03-29 03:06] LABS: PLATELET ESTIMATE NORMAL
[2018-03-29 03:34] LABS: CHLORIDE 101 mEq/L (98-107)
[2018-03-29 08:00] VITALS: BP 122/78
[2018-03-29] MEDS ORDERED: DIPHENHYDRAMINE 50MG/ML VIAL IV PRN (08:15)
[2018-03-29] MEDS ORDERED: TRAMADOL 50MG TABLET PO PRN (08:15)
[2018-03-29] MEDS ORDERED: IPRATROPIUM/ALBUTEROL 0.5-3(2.5)MG/3ML NEB INH PRN (08:15)
[2018-03-29] MEDS ORDERED: ZOLPIDEM TARTRATE 5MG TABLET PO PRN (08:15)
[2018-03-29] MEDS ORDERED: ONDANSETRON HCL 4MG/2ML INJ IV PRN (08:15)
[2018-03-29] MEDS ORDERED: GUAIFENESIN 200MG/10ML SUGAR FREE UDC PO PRN (08:15)
[2018-03-29] MEDS ORDERED: DOCUSATE SODIUM 100MG CAPSULE PO PRN (08:15)
[2018-03-29] MEDS ORDERED: CLONIDINE 0.1MG TABLET PO PRN (08:15)
[2018-03-29] MEDS ORDERED: MAGNESIUM/ALUMINUM HYDROXIDE/SIMETHICONE 30ML UDC PO PRN (08:15)
[2018-03-29 08:45] VITALS: BP 122/78
[2018-03-29] MEDS: FAMOTIDINE 20MG TABLET PO SCH (10:17)
[2018-03-29] MEDS: FOLIC ACID/VITAMIN B COMP W-C TABLET PO SCH (10:17)
[2018-03-29] MEDS: SEVELAMER CARBONATE 800 MG TABLET PO SCH ×3 (10:17→17:30)
[2018-03-29 12:00] VITALS: BP 99/59
[2018-03-29 16:00] VITALS: BP 108/72
[2018-03-29] MEDS: CARVEDILOL 3.125 MG TABLET PO SCH (17:31)
[2018-03-29 20:00] VITALS: BP 112/70
[2018-03-29] MEDS: EPOETIN ALFA 10000UNITS/ML VIAL SUBCUT SCH (21:17)
[2018-03-29 23:54] LABS: HEMATOCRIT 20.3 % (42.0-52.0); HEMOGLOBIN 6.7 g/dL (14.0-18.0)
[2018-03-30] VITALS (11 sets, daily range): BP systolic 91–115; BP diastolic 33–73
[2018-03-30 00:14] LABS: CREATINE KINASE MB FRACTION 1.9 ng/mL (0.5-3.6)
[2018-03-30 05:50] LABS: MEAN CORPUSCULAR HEMOGLOBIN 31.4 pg (28.0-32.0); MEAN CORPUSCULAR VOLUME 94.5 fL (80.0-94.0); MEAN PLATELET VOLUME 9.1 fl (7.4-10.4); PLATELET 129 x1000/uL (130-400); RED BLOOD CELL COUNT 2.04 mill/uL (4.7-6.1); RED CELL DISTRIBUTION WIDTH 15.3 % (11.6-14.6)
[2018-03-30] MEDS: CARVEDILOL 3.125 MG TABLET PO SCH ×2 (06:00→17:36)
[2018-03-30 06:24] LABS: PHOSPHORUS 5.7 mg/dL (2.5-4.9)
[2018-03-30 06:25] LABS: HEMATOCRIT. 19.3 % (42.0-52.0); HEMOGLOBIN. 6.4 g/dL (14.0-18.0)
[2018-03-30] MEDS: FOLIC ACID/VITAMIN B COMP W-C TABLET PO SCH (10:16)
[2018-03-30] MEDS: FAMOTIDINE 20MG TABLET PO SCH (10:16)
[2018-03-30] MEDS: PANTOPRAZOLE SODIUM 40 MG/VIAL IV SCH (10:17)
[2018-03-30] MEDS: SEVELAMER CARBONATE 800 MG TABLET PO SCH ×3 (10:17→17:34)
[2018-03-30 11:55] LABS: PLATELET ESTIMATE SLIGHTLY DECREASED
[2018-03-30 11:57] LABS: HEMATOCRIT 22.2 % (42.0-52.0); HEMOGLOBIN 7.6 g/dL (14.0-18.0)
[2018-03-31] VITALS: BP 100/50
[2018-03-31 04:00] VITALS: BP 114/56
[2018-03-31] MEDS: CARVEDILOL 3.125 MG TABLET PO SCH ×2 (05:30→17:00)
[2018-03-31 07:10] LABS: HEMATOCRIT. 22.5 % (42.0-52.0); HEMOGLOBIN. 7.5 g/dL (14.0-18.0); MEAN CORPUSCULAR HEMOGLOBIN 31.6 pg (28.0-32.0); MEAN CORPUSCULAR VOLUME 94.1 fL (80.0-94.0); MEAN PLATELET VOLUME 9.5 fl (7.4-10.4); PLATELET 148 x1000/uL (130-400); RED BLOOD CELL COUNT 2.39 mill/uL (4.7-6.1); RED CELL DISTRIBUTION WIDTH 15.7 % (11.6-14.6)
[2018-03-31 08:00] VITALS: BP 108/60
[2018-03-31 08:18] LABS: PHOSPHORUS 3.8 mg/dL (2.5-4.9)
[2018-03-31] MEDS: SEVELAMER CARBONATE 800 MG TABLET PO SCH ×3 (08:57→17:08)
[2018-03-31] MEDS: FAMOTIDINE 20MG TABLET PO SCH (08:57)
[2018-03-31] MEDS: FOLIC ACID/VITAMIN B COMP W-C TABLET PO SCH (08:57)
[2018-03-31] MEDS: PANTOPRAZOLE SODIUM 40 MG/VIAL IV SCH (08:57)
[2018-03-31 12:00] VITALS: BP 110/56
[2018-03-31 13:11] LABS: PLATELET ESTIMATE NORMAL
[2018-03-31 16:00] VITALS: BP 104/41
[2018-03-31 20:00] VITALS: BP 105/52
[2018-03-31] MEDS: ACETAMINOPHEN 325MG TABLET PO PRN (20:36)
[2018-04-01] VITALS: BP 103/51
[2018-04-01 04:00] VITALS: BP 110/65
[2018-04-01] MEDS: CARVEDILOL 3.125 MG TABLET PO SCH ×2 (05:43→17:32)
[2018-04-01 07:53] LABS: HEMATOCRIT. 22.1 % (42.0-52.0); HEMOGLOBIN. 7.3 g/dL (14.0-18.0); MEAN CORPUSCULAR HEMOGLOBIN 31.6 pg (28.0-32.0); MEAN CORPUSCULAR VOLUME 95.6 fL (80.0-94.0); PLATELET 155 x1000/uL (130-400); RED BLOOD CELL COUNT 2.31 mill/uL (4.7-6.1); RED CELL DISTRIBUTION WIDTH 15.6 % (11.6-14.6)
[2018-04-01 08:00] VITALS: BP 114/22
[2018-04-01 09:01] LABS: PHOSPHORUS 4.3 mg/dL (2.5-4.9)
[2018-04-01] MEDS: FAMOTIDINE 20MG TABLET PO SCH (10:53)
[2018-04-01] MEDS: SEVELAMER CARBONATE 800 MG TABLET PO SCH ×2 (10:53→14:06)
[2018-04-01] MEDS: PANTOPRAZOLE SODIUM 40 MG/VIAL IV SCH (10:55)
[2018-04-01] MEDS: FOLIC ACID/VITAMIN B COMP W-C TABLET PO SCH (10:55)
[2018-04-01 11:53] LABS: PLATELET ESTIMATE NORMAL
[2018-04-01 12:00] VITALS: BP 114/68
[2018-04-01 16:00] VITALS: BP 130/69
[2018-04-01 20:00] VITALS: BP 133/92
[2018-04-01] MEDS: EPOETIN ALFA 10000UNITS/ML VIAL SUBCUT SCH (21:09)
[2018-04-02] VITALS: BP 131/51
[2018-04-02 04:00] VITALS: BP 123/85
[2018-04-02] MEDS: ACETAMINOPHEN 325MG TABLET PO PRN (04:00)
[2018-04-02] MEDS: CARVEDILOL 3.125 MG TABLET PO SCH (05:12)
[2018-04-02 06:56] LABS: CHLORIDE 99 mEq/L (98-107)
[2018-04-02 07:04] LABS: PHOSPHORUS 5.4 mg/dL (2.5-4.9)
[2018-04-02 07:07] LABS: HEMOGLOBIN. 7.6 g/dL (14.0-18.0); MEAN CORPUSCULAR HEMOGLOBIN 31.5 pg (28.0-32.0); MEAN CORPUSCULAR VOLUME 96.2 fL (80.0-94.0); MEAN PLATELET VOLUME 9.5 fl (7.4-10.4); PLATELET 168 x1000/uL (130-400); RED CELL DISTRIBUTION WIDTH 15.9 % (11.6-14.6)
[2018-04-02 08:00] VITALS: BP 129/85
[2018-04-02] MEDS: PANTOPRAZOLE SODIUM 40 MG/VIAL IV SCH (08:19)
[2018-04-02] MEDS: FOLIC ACID/VITAMIN B COMP W-C TABLET PO SCH (08:19)
[2018-04-02] MEDS: SEVELAMER CARBONATE 800 MG TABLET PO SCH (10:18)
[2018-04-02 11:48] VITALS: BP 120/80
[2018-04-02 13:16] LABS: PLATELET ESTIMATE NORMAL
[2018-04-02 14:13] VITALS: BP 120/80
[2018-04-02] MEDS ORDERED: SODIUM POLYSTYRENE SULFONATE 15 G/60 ML BOT PO NR (18:00)
== END 2018-04-02 18:30 | disposition home health service (06) | DRG 377 ==
LOC: ER 02:54 → 8WST 03:26 → ENRESERV 07:11 → SUPCPDRO 07:59
PROVIDERS: ADMIT Internal Medicine; ATTEND Internal Medicine
PROC: 5A1D70Z Performance of Urinary Filtration, Intermittent, Less than 6 Hours Per Day (ICD-10-PCS; 2018-03-29)
PROC: 30233N1 Transfusion of Nonautologous Red Blood Cells into Peripheral Vein, Percutaneous Approach (ICD-10-PCS; principal; 2018-03-30)
PROC: 5A1D70Z Performance of Urinary Filtration, Intermittent, Less than 6 Hours Per Day (ICD-10-PCS; 2018-04-01)
DX: K92.2 Gastrointestinal hemorrhage, unspecified (principal); N18.6 End stage renal disease; D62 Acute posthemorrhagic anemia; E44.0 Moderate protein-calorie malnutrition; N25.81 Secondary hyperparathyroidism of renal origin; I13.2 Hypertensive heart and chronic kidney disease with heart failure and with stage 5 chronic kidney disease, or end stage renal disease; I31.3 Pericardial effusion (noninflammatory); I50.9 Heart failure, unspecified; K64.8 Other hemorrhoids; J44.9 Chronic obstructive pulmonary disease, unspecified; D63.8 Anemia in other chronic diseases classified elsewhere; D53.9 Nutritional anemia, unspecified; E78.00 Pure hypercholesterolemia, unspecified; E78.5 Hyperlipidemia, unspecified; E87.5 Hyperkalemia; I25.10 Atherosclerotic heart disease of native coronary artery without angina pectoris; I27.20 Pulmonary hypertension, unspecified; K40.90 Unilateral inguinal hernia, without obstruction or gangrene, not specified as recurrent; K44.9 Diaphragmatic hernia without obstruction or gangrene; Z79.82 Long term (current) use of aspirin; Z99.2 Dependence on renal dialysis; Z79.899 Other long term (current) drug therapy; Z82.49 Family history of ischemic heart disease and other diseases of the circulatory system; Z87.891 Personal history of nicotine dependence; Z99.81 Dependence on supplemental oxygen; Z88.0 Allergy status to penicillin; Z68.21 Body mass index [BMI] 21.0-21.9, adult; K57.30 Diverticulosis of large intestine without perforation or abscess without bleeding
CPT/HCPCS: 36415; 71045; 78278; 80048; 80061; 82550; 82553; 83036; 83735; 84100; 84484; 85014; 85018; 86850; 86900; 86920; 93005; 93970; 96361; 96365; 96366; 96375; 97116; 97163; 97165; 97530; 99285; A9560; C9113; J0885; J7040; P9016

== ENCOUNTER 2018-04-08 08:31 | Inpatient (IN) | payer MEDICARE, OTHER ==
[~2018-04-08] VITALS: Ht 167.6 cm; Wt 61.9 kg
[2018-04-08] MEDS ORDERED: ONDANSETRON HCL 4MG/2ML INJ IV ONE (11:15)
[2018-04-08 11:52] LABS: BASOPHILS % 0.6 % (0.0-2.0); EOSINOPHILS % 1.3 % (0.0-5.0); HEMATOCRIT. 26.2 % (42.0-52.0); HEMOGLOBIN. 8.6 g/dL (14.0-18.0); MEAN CORPUSCULAR HEMOGLOBIN 32.3 pg (28.0-32.0); MEAN CORPUSCULAR VOLUME 97.8 fL (80.0-94.0); MEAN PLATELET VOLUME 8.9 fl (7.4-10.4); MONOCYTES % 10.2 % (2.0-8.0); NEUTROPHILS % 75.9 % (40.0-76.0); PLATELET 227 x1000/uL (130-400); RED BLOOD CELL COUNT 2.68 mill/uL (4.7-6.1); RED CELL DISTRIBUTION WIDTH 18.9 % (11.6-14.6)
[2018-04-08 12:02] LABS: INR 1.1; PARTIAL THROMBOPLASTIN TIME 26.8 sec (23.4-31.0); PROTHROMBIN TIME 11.2 sec (9.1-11.1)
[2018-04-08 12:05] LABS: CHLORIDE 98 mEq/L (98-107)
[2018-04-08] MEDS ORDERED: ONDANSETRON HCL 4MG/2ML INJ IV PRN ×2 (14:15→15:30)
[2018-04-08] MEDS ORDERED: PANTOPRAZOLE SODIUM 40 MG/VIAL IV NR (15:00)
[2018-04-08] MEDS ORDERED: CLONIDINE 0.1MG TABLET PO PRN (15:30)
[2018-04-08] MEDS ORDERED: LORAZEPAM 0.5MG TABLET PO PRN (15:30)
[2018-04-08] MEDS ORDERED: DIPHENHYDRAMINE 50MG/ML VIAL IV PRN (15:30)
[2018-04-08] MEDS ORDERED: NITROGLYCERIN 0.4MG TABLET SL SL PRN (15:30)
[2018-04-08] MEDS ORDERED: IPRATROPIUM/ALBUTEROL 0.5-3(2.5)MG/3ML NEB INH PRN (15:30)
[2018-04-08] MEDS ORDERED: TRAMADOL 50MG TABLET PO PRN (15:30)
[2018-04-08] MEDS ORDERED: ACETAMINOPHEN 325MG TABLET PO PRN (15:30)
[2018-04-08] MEDS ORDERED: MAGNESIUM/ALUMINUM HYDROXIDE/SIMETHICONE 30ML UDC PO PRN (15:30)
[2018-04-08] MEDS ORDERED: FAMOTIDINE 20MG TABLET PO SCH (21:00)
[2018-04-08] MEDS ORDERED: MORPHINE SULFATE 4 MG/ML CPJ (NOT FOR IM USE) IV PRN (23:01)
[2018-04-09] MEDS ORDERED: ASPI-1158 MT (03:57)
[2018-04-09] MEDS ORDERED: UMEC1DIS IH (03:58)
[2018-04-09 04:00] VITALS: BP 122/78
[2018-04-09] MEDS ORDERED: ZOLPIDEM TARTRATE 5MG TABLET PO PRN (04:04)
[2018-04-09] MEDS ORDERED: TRAMADOL 50MG TABLET PO PRN (04:15)
[2018-04-09] MEDS: CARVEDILOL 3.125 MG TABLET PO SCH ×2 (06:05→18:00)
[2018-04-09] MEDS: SEVELAMER CARBONATE 800 MG TABLET PO SCH ×3 (06:05→18:41)
[2018-04-09 08:00] VITALS: BP 151/106
[2018-04-09 09:31] LABS: BASOPHILS % 0.7 % (0.0-2.0); EOSINOPHILS % 1.1 % (0.0-5.0); HEMATOCRIT. 26.2 % (42.0-52.0); HEMOGLOBIN. 8.2 g/dL (14.0-18.0); LYMPHOCYTES % 10.5 % (20.0-50.0); MEAN CORPUSCULAR HEMOGLOBIN 30.9 pg (28.0-32.0); MEAN CORPUSCULAR VOLUME 98.5 fL (80.0-94.0); MEAN PLATELET VOLUME 9.3 fl (7.4-10.4); MONOCYTES % 11.3 % (2.0-8.0); NEUTROPHILS % 76.4 % (40.0-76.0); PLATELET 231 x1000/uL (130-400); RED BLOOD CELL COUNT 2.66 mill/uL (4.7-6.1); RED CELL DISTRIBUTION WIDTH 18.1 % (11.6-14.6)
[2018-04-09 09:34] LABS: CHLORIDE 99 mEq/L (98-107)
[2018-04-09 09:47] LABS: PHOSPHORUS 5.4 mg/dL (2.5-4.9)
[2018-04-09] MEDS: PANTOPRAZOLE SODIUM 40 MG/VIAL IV SCH ×2 (10:30→18:41)
[2018-04-09] MEDS: FAMOTIDINE 20MG TABLET PO SCH (10:30)
[2018-04-09] MEDS: FOLIC ACID/VITAMIN B COMP W-C TABLET PO SCH (10:30)
[2018-04-09 12:00] VITALS: BP 106/66
[2018-04-09 15:23] LABS: HEMATOCRIT 24.8 % (42.0-52.0)
[2018-04-09 16:00] VITALS: BP 113/53
[2018-04-09] MEDS: GUAIFENESIN 200MG/10ML SUGAR FREE UDC PO PRN ×2 (16:51→21:18)
[2018-04-09 20:32] VITALS: BP 110/71
[2018-04-09 23:26] LABS: HEMATOCRIT 23.4 % (42.0-52.0); HEMOGLOBIN 7.4 g/dL (14.0-18.0)
[2018-04-10 00:44] VITALS: BP 116/62
[2018-04-10] MEDS: GUAIFENESIN 200MG/10ML SUGAR FREE UDC PO PRN ×3 (03:16→20:06)
[2018-04-10 04:00] VITALS: BP 131/71
[2018-04-10] MEDS: CARVEDILOL 3.125 MG TABLET PO SCH ×2 (05:22→18:11)
[2018-04-10 06:52] LABS: HEMATOCRIT. 25.3 % (42.0-52.0); MEAN CORPUSCULAR HEMOGLOBIN 31.2 pg (28.0-32.0); MEAN CORPUSCULAR VOLUME 98.5 fL (80.0-94.0); MEAN PLATELET VOLUME 9.4 fl (7.4-10.4); PLATELET 187 x1000/uL (130-400); RED BLOOD CELL COUNT 2.57 mill/uL (4.7-6.1); RED CELL DISTRIBUTION WIDTH 18.3 % (11.6-14.6)
[2018-04-10 07:20] LABS: PHOSPHORUS 4.3 mg/dL (2.5-4.9)
[2018-04-10 08:00] VITALS: BP 121/77
[2018-04-10] MEDS: FAMOTIDINE 20MG TABLET PO SCH (10:13)
[2018-04-10] MEDS: PANTOPRAZOLE SODIUM 40 MG/VIAL IV SCH ×2 (10:14→18:11)
[2018-04-10] MEDS: FOLIC ACID/VITAMIN B COMP W-C TABLET PO SCH (10:14)
[2018-04-10] MEDS: SEVELAMER CARBONATE 800 MG TABLET PO SCH ×3 (10:14→18:11)
[2018-04-10 11:56] LABS: PLATELET ESTIMATE NORMAL
[2018-04-10 12:00] VITALS: BP 135/88
[2018-04-10 16:00] VITALS: BP 126/85
[2018-04-10 16:00] LABS: HEMATOCRIT 25.2 % (42.0-52.0); HEMOGLOBIN 8.1 g/dL (14.0-18.0)
[2018-04-10] MEDS: SENNOSIDES/DOCUSATE SOD 8.6/50MG TABLET PO SCH (18:11)
[2018-04-10 20:32] VITALS: BP 135/74
[2018-04-10] MEDS ORDERED: EPOETIN ALFA 10000UNITS/ML VIAL SUBCUT SCH (21:00)
[2018-04-11] VITALS: BP 91/65
[2018-04-11] MEDS: GUAIFENESIN 200MG/10ML SUGAR FREE UDC PO PRN ×3 (00:39→10:48)
[2018-04-11 01:02] LABS: HEMATOCRIT 27.3 % (42.0-52.0); HEMOGLOBIN 8.4 g/dL (14.0-18.0)
[2018-04-11 04:00] VITALS: BP 115/73
[2018-04-11] MEDS: CARVEDILOL 3.125 MG TABLET PO SCH ×2 (05:17→17:22)
[2018-04-11 06:57] LABS: BASOPHILS % 1.1 % (0.0-2.0); EOSINOPHILS % 3.8 % (0.0-5.0); HEMATOCRIT. 25.3 % (42.0-52.0); HEMOGLOBIN. 8.1 g/dL (14.0-18.0); LYMPHOCYTES % 11.6 % (20.0-50.0); MEAN CORPUSCULAR HEMOGLOBIN 31.2 pg (28.0-32.0); MEAN CORPUSCULAR VOLUME 97.8 fL (80.0-94.0); MEAN PLATELET VOLUME 9.4 fl (7.4-10.4); MONOCYTES % 13.1 % (2.0-8.0); NEUTROPHILS % 70.4 % (40.0-76.0); PLATELET 195 x1000/uL (130-400); RED BLOOD CELL COUNT 2.58 mill/uL (4.7-6.1); RED CELL DISTRIBUTION WIDTH 18.2 % (11.6-14.6)
[2018-04-11 08:00] VITALS: BP 124/67
[2018-04-11 08:10] LABS: PHOSPHORUS 4.8 mg/dL (2.5-4.9)
[2018-04-11] MEDS: FAMOTIDINE 20MG TABLET PO SCH (08:27)
[2018-04-11] MEDS: SEVELAMER CARBONATE 800 MG TABLET PO SCH ×3 (08:27→17:27)
[2018-04-11] MEDS: PANTOPRAZOLE SODIUM 40 MG/VIAL IV SCH ×2 (08:27→17:27)
[2018-04-11] MEDS: SENNOSIDES/DOCUSATE SOD 8.6/50MG TABLET PO SCH ×2 (08:27→17:27)
[2018-04-11] MEDS: FOLIC ACID/VITAMIN B COMP W-C TABLET PO SCH (08:27)
[2018-04-11 12:00] VITALS: BP 97/56
[2018-04-11 15:24] LABS: HEMATOCRIT 29.7 % (42.0-52.0); HEMOGLOBIN 9.5 g/dL (14.0-18.0)
[2018-04-11] MEDS: ALBUTEROL (0.5%) 2.5MG/0.5ML NEB HHN SCH ×2 (15:28→20:40)
[2018-04-11 16:00] VITALS: BP 103/60
[2018-04-11 20:00] VITALS: BP 103/60
[2018-04-11] MEDS ORDERED: ALBUTEROL (0.083%) 2.5MG/3ML NEB ONE (20:45)
[2018-04-11 23:25] LABS: HEMATOCRIT 26.7 % (42.0-52.0); HEMOGLOBIN 8.5 g/dL (14.0-18.0)
[2018-04-12] VITALS: BP 114/60
[2018-04-12 04:00] VITALS: BP 114/48
[2018-04-12 06:30] LABS: HEMOGLOBIN. 7.8 g/dL (14.0-18.0); MEAN CORPUSCULAR HEMOGLOBIN 31.3 pg (28.0-32.0); MEAN CORPUSCULAR VOLUME 99.8 fL (80.0-94.0); MEAN PLATELET VOLUME 9.5 fl (7.4-10.4); PLATELET 185 x1000/uL (130-400); RED CELL DISTRIBUTION WIDTH 18.2 % (11.6-14.6)
[2018-04-12] MEDS: GUAIFENESIN 200MG/10ML SUGAR FREE UDC PO PRN (06:30)
[2018-04-12] MEDS: CARVEDILOL 3.125 MG TABLET PO SCH (06:30)
[2018-04-12 07:32] LABS: PHOSPHORUS 3.1 mg/dL (2.5-4.9)
[2018-04-12 08:00] VITALS: BP 102/71
[2018-04-12] MEDS: SENNOSIDES/DOCUSATE SOD 8.6/50MG TABLET PO SCH (08:09)
[2018-04-12] MEDS: FOLIC ACID/VITAMIN B COMP W-C TABLET PO SCH (08:09)
[2018-04-12] MEDS: PANTOPRAZOLE SODIUM 40 MG/VIAL IV SCH (08:09)
[2018-04-12] MEDS: FAMOTIDINE 20MG TABLET PO SCH (08:09)
[2018-04-12] MEDS: SEVELAMER CARBONATE 800 MG TABLET PO SCH (08:09)
[2018-04-12] MEDS: ALBUTEROL (0.5%) 2.5MG/0.5ML NEB HHN SCH (10:13)
[2018-04-12 12:00] VITALS: BP 112/68
[2018-04-12 12:04] VITALS: BP 102/71
[2018-04-13 11:07] LABS: PLATELET ESTIMATE NORMAL
== END 2018-04-12 12:53 | disposition home or self-care (01) | DRG 377 ==
LOC: ER 08:45 → 6WST 14:03 → EDBEDREQ 14:08 → SUPCPDRO 15:08 → ENRESERV 04-09 02:38
PROVIDERS: ADMIT Internal Medicine; ATTEND Internal Medicine
PROC: 5A1D70Z Performance of Urinary Filtration, Intermittent, Less than 6 Hours Per Day (ICD-10-PCS; principal; 2018-04-08)
PROC: 5A1D70Z Performance of Urinary Filtration, Intermittent, Less than 6 Hours Per Day (ICD-10-PCS; 2018-04-10)
DX: K57.31 Diverticulosis of large intestine without perforation or abscess with bleeding (principal); N18.6 End stage renal disease; E44.1 Mild protein-calorie malnutrition; N25.81 Secondary hyperparathyroidism of renal origin; D62 Acute posthemorrhagic anemia; I13.2 Hypertensive heart and chronic kidney disease with heart failure and with stage 5 chronic kidney disease, or end stage renal disease; I25.10 Atherosclerotic heart disease of native coronary artery without angina pectoris; I27.20 Pulmonary hypertension, unspecified; J44.9 Chronic obstructive pulmonary disease, unspecified; K29.70 Gastritis, unspecified, without bleeding; K40.90 Unilateral inguinal hernia, without obstruction or gangrene, not specified as recurrent; K44.9 Diaphragmatic hernia without obstruction or gangrene; D63.8 Anemia in other chronic diseases classified elsewhere; K64.9 Unspecified hemorrhoids; Z99.2 Dependence on renal dialysis; K64.8 Other hemorrhoids; E78.00 Pure hypercholesterolemia, unspecified; I50.9 Heart failure, unspecified; Z79.899 Other long term (current) drug therapy; Z82.49 Family history of ischemic heart disease and other diseases of the circulatory system; Z82.5 Family history of asthma and other chronic lower respiratory diseases; Z88.0 Allergy status to penicillin; Z99.81 Dependence on supplemental oxygen; Z95.5 Presence of coronary angioplasty implant and graft
CPT/HCPCS: 36415; 71045; 74176; 80048; 82746; 82962; 83735; 83880; 84100; 84443; 84484; 85014; 85018; 86850; 86900; 93005; 94640; 96374; 96375; 99285; C9113; J0885; J2405; J7611

== ENCOUNTER 2018-06-13 02:44 | Emergency (ER) | payer MEDICARE, OTHER ==
[~2018-06-13] VITALS: Ht 167.6 cm; Wt 57.0 kg
[~2018-06-13 02:44] MED LIST changes: +ASPI-1158 MT; +UMEC1DIS IH
[2018-06-13] MEDS ORDERED: MIDAZOLAM HCL 2 MG/2 ML VIAL IV ONE ×2 (03:45→04:15)
[2018-06-13] MEDS ORDERED: KETOROLAC 15MG/ML VIAL IV ONE (03:45)
[2018-06-13] MEDS ORDERED: ONDANSETRON HCL 4MG/2ML INJ ONE (04:13)
[2018-06-13] MEDS ORDERED: ONDANSETRON HCL 4MG/2ML INJ IV ONE (04:15)
[2018-06-13 05:26] VITALS: BP 136/92
== END 2018-06-13 05:28 | disposition home or self-care (01) ==
LOC: ER 02:44
DX: K40.90 Unilateral inguinal hernia, without obstruction or gangrene, not specified as recurrent (principal); I12.0 Hypertensive chronic kidney disease with stage 5 chronic kidney disease or end stage renal disease; N18.6 End stage renal disease; Z99.2 Dependence on renal dialysis; J44.9 Chronic obstructive pulmonary disease, unspecified; Z79.899 Other long term (current) drug therapy; Z79.82 Long term (current) use of aspirin
CPT/HCPCS: 96374; 96375; 99284; J1885; J2250; J2405